=== PATIENT | male | born 1960 | race Caucasian/White ===

== ENCOUNTER 2017-11-19 13:56 | Emergency (ER) | payer SELFPAY ==
[~2017-11-19] VITALS: Ht 177.8 cm; Wt 68.7 kg
[~2017-11-19 13:56] MED LIST: AMLO10TA2 PO; QUET1TAB8 PO; blood pressure med PO
[2017-11-19 14:00] VITALS: BP 171/98; PULSE 67; RESP 16; TEMP 98.3; O2SAT 99
--- NOTE | 2017-11-19 16:08 | PD ---
HPI Chief Complaint: Flank/Kidney Pain Time Seen by Provider: 15:46 Travel History International Travel<30 days: No Contact w/Intl Traveler<30days: No Traveled to known affect area: No History of Present Illness HPI 57-year-old male complains of left flank pain. Patient states that he started noticed transient episode of dark urine 4 days ago. Patient started having sharp flank pain with radiation to left side abdomen and left groin since then. Patient denies any fever chills. Patient denies any dysuria or frequency. Patient has history of kidney stone the right side in the past. Patient states that he has nausea but no vomiting or diarrhea. On a scale of 1-10 the pain is a 7. PFSH Past Medical History Anxiety: Yes Cardiovascular Problems: Yes (HTN) Diminished Hearing: No Genitourinary: Yes (PROSTATE ) Hypertension: Yes Kidney Stones: Yes Tetanus Vaccination: < 5 Years Influenza Vaccination: No Past Surgical History Tonsillectomy: Yes Social History Alcohol Use: Yes (DAILY ) Tobacco Use: Yes (10/19 PPD) Substance Use: No (DENIES) Allergies-Medications (Allergen,Severity, Reaction): Coded Allergies: acetaminophen (Unverified Allergy, Severe, "NECK SWELLS UP,HARD TO BREATHE ", 11/19/17) feathers (Unverified Allergy, Severe, "NOSE CLOGS UP", 11/19/17) milk (Unverified Allergy, Severe, RASH, 11/19/17) pectin (Unverified Allergy, Unknown, Hives, 11/19/17) *MDRO Multi-Drug Resistant Organism (Verified Adverse Reaction, Unknown, ) 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) Reported Meds & Prescriptions Reported Meds & Active Scripts Active Amlodipine (Amlodipine Besylate) 10 Mg Tab 10 Mg PO DAILY Reported Quetiapine (Quetiapine Fumarate) 100 Mg Tab 100 Mg PO BID Review of Systems General / Constitutional: No: Fever Eyes: No: Visual changes HENT: No: Headaches Cardiovascular: No: Chest Pain or Discomfort Respiratory: No: Shortness of Breath Gastrointestinal: Positive: Nausea, Abdominal Pain Genitourinary: No: Dysuria Musculoskeletal: No: Pain Skin: No Rash Neurologic: No: Weakness Psychiatric: No: Depression Endocrine: No: Polydipsia Hematologic/Lymphatic: No: Easy Bruising Physical Exam Narrative GENERAL: Well-nourished, well-developed patient. SKIN: Focused skin assessment warm/dry. HEAD: Normocephalic. EYES: No scleral icterus. No injection or drainage. NECK: Supple, trachea midline. No JVD or lymphadenopathy. CARDIOVASCULAR: Regular rate and rhythm without murmurs, gallops, or rubs. RESPIRATORY: Breath sounds equal bilaterally. No accessory muscle use. GASTROINTESTINAL: Abdomen soft, nondistended. Patient has mild tenderness on palpation left lower quadrant of the abdomen. No rebound tenderness. No mass. MUSCULOSKELETAL: No cyanosis, or edema. BACK: Nontender without obvious deformity. No CVA tenderness. Neurologic exam normal. Data Data Last Documented VS Vital Signs Date Time Temp Pulse Resp B/P (MAP) Pulse Ox O2 Delivery O2 Flow Rate FiO2 11/19/17 14:00 98.3 67 16 171/98 (122) 99 Orders Orders Urinalysis - C+S If Indicated (11/19/17 15:53) Ct Abd/Pel W/O Iv Contrast (11/19/17 16:02) Labs Laboratory Tests Test 11/19/17 15:55 Urine Color YELLOW Urine Turbidity CLEAR Urine pH 5.5 Urine Specific [place] 1.015 Urine Protein NEG mg/dL Urine Glucose (UA) NEG mg/dL Urine Ketones NEG mg/dL Urine Occult Blood NEG Urine Nitrite NEG Urine Bilirubin NEG Urine Leukocyte Esterase SMALL Urine RBC 0-3 /hpf Urine WBC 6-8 /hpf Urine Squamous Epithelial Cells 0-5 /hpf Microscopic Urinalysis Comment CULT NOT INDICATED MDM Medical Decision Making Medical Screen Exam Complete: Yes Emergency Medical Condition: Yes Interpretation(s) Last Impressions Abdomen/Pelvis CT 11/19/17 1602 Signed Impressions: Service Date/Time: Sunday, November 19, 2017 17:43 - CONCLUSION: 1. 4 mm proximal left ureteral stone with moderate hydronephrosis. 2. Either subacute or acute rib fractures on the left. Cj Freitas Jr., MD 1846 PM. UA is negative. Differential Diagnosis Differential diagnosis including nephrolithiasis, pyelonephritis, colitis, hematuria. Narrative Course 57-year-old male with dark urine and left flank pain and left-sided abdominal pain. History kidney stone in the past. Diagnosis Primary Impression: Nephrolithiasis Patient Instructions: General Instructions Additional Instructions: Take medications as directed. Follow-up with urologist. Return if intractable pain, fever, persistent vomiting. Med/Other Pt SpecificInfo: Prescription(s) given Scripts Promethazine (Phenergan) 25 Mg Tablet 25 MG PO Q6H Y for NAUSEA OR VOMITING, #10 TAB 0 Refills Prov: Wolfgang Fernández MD 11/19/17 Tamsulosin (Flomax) 0.4 Mg Cap 0.4 MG PO HS for Manage Prostate Problems, #10 CAP 0 Refills Prov: Wolfgang Fernández MD 11/19/17 Codeine Sulfate (Codeine Sulfate) 15 Mg Tab 15 MG PO Q6H Y for PAIN, #20 TAB 0 Refills Prov: Wolfgang Fernández MD 11/19/17 Disposition: 01 DISCHARGE HOME Condition: Stable Wolfgang Fernández MD Nov 19, 2017 16:08
[2017-11-19 16:15] LABS: BILIRUBIN, URINE NEG (NEG); BLOOD, URINE NEG (NEG); GLUCOSE,URINE NEG (NEG); KETONE, URINE NEG (NEG); NITRITE,URINE NEG (NEG); PH, URINE 5.5 (5.0-8.5); URINE LEUKOCYTE ESTERASE SMALL (NEG)
[2017-11-19 16:23] LABS: URINE COLOR YELLOW (YELLW/STRAW)
[2017-11-19 16:24] LABS: RBC, URINE 0-3 /hpf (0-3); SQUAMOUS EPITHELIAL CELL URINE 0-5 /hpf (0-5)
--- NOTE | 2017-11-19 18:06 | RADRPT ---
EXAM DATE/TIME: 11/19/2017 17:43 [facility] COMPARISON: CT ABDOMEN & PELVIS W/O CONTRAST, December 13, 2013, 10:26. INDICATIONS : Left flank pain x 4 days. ORAL CONTRAST: No oral contrast ingested. RADIATION DOSE: 7.06 CTDIvol (mGy) MEDICAL HISTORY : Renal calculi. Hypertension. SURGICAL HISTORY : None. ENCOUNTER: Initial ACUITY: 4 - 6 days PAIN SCALE: 8/10 LOCATION: Left flank TECHNIQUE: Volumetric scanning of the abdomen and pelvis was performed. Using automated exposure control and ad justment of the mA and/or kV according to patient size, radiation dose was kept as low as reasonably achievable to obtain optimal diagnostic quality images. DICOM format image data is available electro nically for review and comparison. FINDINGS: LOWER LUNGS: The visualized lower lungs are clear. LIVER: Homogeneous density without lesion. Tiny cyst within segment 3 is stable. 1 cm cyst within the right lobe is stable. There is no dilation of the biliary tree. No calcified gallstones. SPLEEN: Normal size without lesion. PANCREAS: Within normal limits. KIDNEYS: Normal in size and shape. There is a 4 mm stone involving the proximal left ureter. There is resultin g moderate hydronephrosis. The kidneys are otherwise unremarkable. No perinephric stranding or fluid collections.. ADRENAL GLANDS: Within normal limits. VASCULAR: There is no aortic aneurysm. BOWEL/MESENTERY: The stomach, small bowel, and colon demonstrate no acute abnormality. There is no free intraperitone al air or fluid. ABDOMINAL WALL: Within normal limits. RETROPERITONEUM: There is no lymphadenopathy. BLADDER: No wall thickening or mass. REPRODUCTIVE: Calcifications involve the prostate gland. INGUINAL: There is no lymphadenopathy or hernia. MUSCULOSKELETAL: T8 and T11 fractures are seen involving the left ribs. These are either subacute or acute in nature. A degenerative lumbar spine. CONCLUSION: 1. 4 mm proximal left ureteral stone with moderate hydronephrosis. 2. Either subacute or acute rib fractures on the left. Cj Freitas Jr., MD on November 19, 2017 at 17:58 Board Certified Radiologist. This report was verified electronically.
[2017-11-19 18:48] VITALS: BP 177/112; PULSE 66; RESP 16; O2SAT 98
[2017-11-19] MEDS ORDERED: CODE15 PO (18:52)
[2017-11-19] MEDS ORDERED: TAMS5CAP PO (18:52)
[2017-11-19] MEDS ORDERED: PROM25TA10 PO (18:52)
== END 2017-11-19 19:18 | disposition home or self-care (01) ==
LOC: PHED 13:56
DX: N13.2 Hydronephrosis with renal and ureteral calculous obstruction (principal); I10 Essential (primary) hypertension; F17.200 Nicotine dependence, unspecified, uncomplicated
CPT/HCPCS: 74176; 81001; 99283